=== PATIENT | female | born 1970 | race African-American/Black ===

== ENCOUNTER 2021-08-19 10:20 | Emergency (ER) | payer OTHER ==
[2021-08-19 11:01] LABS: #Monocytes 0.5 10x3/uL (0.0-1.1); #Neutrophils 4.5 10x3/uL (1.5-8.4); %Basophils 0.2 % (0.0-2.0); %Eosinophils 0.5 % (0.0-6.0); %Lymphocytes 21.3 % (18.0-47.0); %Monocytes 8.2 % (0.0-10.0); %Neutrophils 69.5 % (40.0-75.0); Hemoglobin 12.9 g/dL (12.0-15.5); Mean Corpuscular HGB CONC 30.8 g/dL (32.0-36.0); Mean Corpuscular Volume 77.9 fl (81.6-98.3); Mean Platelet Volume 10.4 fl (7.4-10.4); Platelet Count 314 10x3/uL (150-450); RBC Distribution Width 16.8 % (11.5-14.5); Red Blood Cell (RBC) Count 5.38 10x6/uL (3.90-5.03); White Blood Cell (WBC) Count 6.5 10x3/uL (3.5-10.5)
[2021-08-19 11:20] LABS: ALT (SGPT) 34 U/L (8-55); AST (SGOT) 24 U/L (5-34); Albumin 4.9 g/dL (3.5-5.0); Alkaline Phosphatase 84 U/L (40-110); Anion Gap 24 mmol/L (10-20); BUN (Urea Nitrogen) 18 mg/dL (7.0-18.7); Bilirubin, Total 0.6 mg/dL (0.2-1.2); Calc. Creatinine Clearance 0 mL/min (70-130); Calcium 10.9 mg/dL (7.8-10.44); Carbon Dioxide 15 mmol/L (22-29); Chloride 108 mmol/L (98-107); Globulin 4.1 g/dL (2.4-3.5); Glucose 103 mg/dL (70-105); Lipase 125 U/L (8-78); Potassium 3.2 mmol/L (3.5-5.1); Sodium 144 mmol/L (136-145)
[2021-08-19] MEDS ORDERED: Ondansetron PF 4 MG/2 ML Vial ONE ×2 (12:36→13:22)
[2021-08-19] MEDS ORDERED: Potassium Chloride 20 MEQ/100 ML PREMIX BAG ONE (13:16)
[2021-08-19] MEDS ORDERED: Promethazine HCl 25 MG/ML VIAL ONE (15:02)
== END 2021-08-19 17:34 | disposition home or self-care (01) ==
LOC: CSHERS 10:20
DX: E87.6 Hypokalemia (principal); R11.2 Nausea with vomiting, unspecified; I10 Essential (primary) hypertension
CPT/HCPCS: 36415; 74177; 80053; 83690; 83735; 85025; 96374; 96375; 96376; J2405; J2550; J3480